=== PATIENT | female | born 1945 ===

== ENCOUNTER 2024-03-18 17:27 | Emergency (ER) | payer MEDICARE, OTHER, SELFPAY ==
[2024-03-18 17:38] VITALS: BP 151/63; PULSE 90; RESP 14; TEMP 36.7; O2SAT 96
--- NOTE | 2024-03-18 19:07 | ED.GENADUL_ITS ---
Discharge Plan Disposition Patient Disposition: Home Condition: Stable Discharge Details Clinical Impression: HSV (herpes simplex virus) infection, Dehydration Primary Care Provider: Unknown,Unknown ED Provider: Marisa Calvin Discharge Instructions Instructions: Cold sores (oral herpes) Additional Instructions: Please establish care with a primary care provider if you do not want to see your current PCP. It is very important that you stay well-hydrated. Continue to take Tylenol 6 or 50 mg every 6 hours and/or ibuprofen 600 mg every 8 hours for pain control as needed. You have may also use the Magic mouthwash provided, 5 mL every 6 hours as needed for discomfort. Cool drinks and soft foods may be most comfortable. Return to emergency care if you are unable to tolerate any drinks or food by mouth, difficulty breathing, decreased urine output, episodes of passing out, or if you are very worried and need to be rechecked again immediately HPI General Date/Time Provider Initiated Documentation: 03/18/24 17:30 . HPI Narrative: Shea is a 78-year-old female with history of HTN, provoked PE due to breast cancer, CHF who presents to the emergency department for evaluation of oral sores and concern for dehydration. She was admitted to the hospital in [place] 1 week ago for COVID-pneumonia (sx started 2 weeks ago), was found to have MARCELA at that time (prerenal is azotemia). She was treated with dexamethasone, remdesivir, ceftriaxone, and azithromycin x 7 days, discharged home, at which point she flew here to [place]. She lives in [place]. She reports that her cough has been unchanged since hospitalization, she was sent home with albuterol inhaler but has not used it since last night. She reports she has a mild frontal headache and pain in her mouth and throat from oral sores, which she attributes to HSV which usually gets activated by viral illness. Denies fever/chills, vision change, chest pain, shortness of breath, change in cough, nausea/vomiting, abdominal pain, change in bowel or bladder function. She has only urinated small amounts of dark urine today. She estimates she is only had 1 cup of water to drink in this timeframe since yesterday. She has not taken any Tylenol or ibuprofen today. Physical exam remarkable for perioral sores consistent with HSV, as well as shallow ulcerations in the buccal mucosa/inner lip. Voice is slightly hoarse, mucous membranes are tacky with a white film on tongue. Uvula midline, full painless range of motion to neck, no cervical or submandibular lymphadenopathy. Easy work of breathing, faint wheezes noted in upper lobes bilaterally. Occasional congested cough. Normal heart sounds, heart rate in the 100s, slight tachycardia. Abdomen is soft, nondistended, nontender to palpation. Moving all extremities equally. History and presentation consistent with dehydration due to HSV infection, concern for possible electrolyte imbalance. As patient's symptoms have been unchanged since discharge from the hospital, no significant concern for persistent/treatment resistant pneumonia at this time. I independently interpreted the following tests: CBC reassuring, leukocytosis with white cell count 13.66 noted, consistent with recent steroid use. BMP reassuring. While in the emergency department Shea received Magic mouthwash and Toradol with good improvement in the pain. IV fluids given for rehydration. She was able to tolerate p.o. after receiving medications for discomfort. No indications for hospitalization, as patient can be managed outpatient as long as she stays hydrated. Stressed the importance of drinking plenty of fluids with patient. Reviewed discharge instructions with patient, including pain managemen t and red flags indicate need for return to emergency care. She is currently thinking about leaving her primary care provider in [place], recommend establishing care with a new one and had a telehealth visit as needed. Related Data Allergies Allergy/AdvReac Type Severity Reaction Status Date / Time No Known Allergies Allergy Verified 03/18/24 17:41 General Stated Complaint: RespSymp ANGELITO: 3 Review of Systems Narrative: see HPI Exam Const General: cooperative, no acute distress and disheveled Nutritional Appearance: obese HENMT Head: normal to inspection General nose exam: external nose normal Face and sinus: normal facial exam and dry mucous membranes Mouth: no drooling, lip abnormal (herpetic lesions to upper and lower lips) and oral mucosa abnormal (swallow round ulcerations to inner cheeks and inner lips) Throat: tonsils normal and uvula midline Neck Neck: normal visual inspection, full ROM and no lymphadenopathy Lymphatic: no lymphadenopathy noted Resp Effort & Inspection: normal respiratory effort and able to speak in complete sentences Auscultation: wheezes (faint end exp wheezes bilaterally) Cardio Rate: regular rate Rhythm: regular rhythm GI Inspection: normal to inspection Palpation: soft and nontender Neuro General: gait normal, tone normal and moves all extremities Course Vital Signs Vital signs: Vital Signs Temperature 36.7 C 03/18/24 17:38 Pulse 90 03/18/24 17:38 Respiratory Rate 14 03/18/24 17:38 Blood Pressure 151/63 H 03/18/24 17:38 Pulse Oximetry 96 03/18/24 17:38 Temperature 36.7 C 03/18/24 17:38 Temperature Source Skin 03/18/24 17:38 Pulse 90 03/18/24 17:38 Respiratory Rate 14 03/18/24 17:38 Blood Pressure 151/63 H 03/18/24 17:38 Blood Pressure Position Sitting 03/18/24 17:38 Pulse Oximetry 96 03/18/24 17:38 Oxygen Delivery Method Room Air 03/18/24 17:38 Oxygen Flow Rate 0 03/18/24 17:38 Pain Level 4 03/18/24 17:38 Medical Decision Making Quality:SDOH Health Related Social Needs: No Data to Display PFSH All Active Problems (Updated 03/18/24 @ 21:45 by Marisa Resendez) Dehydration (Acute) HSV (herpes simplex virus) infection (Acute) Social History Smoking/Tobacco Use Status: Never Smoking risk assessment performed?: Yes Substance use type: does not use Housing: house Do you feel safe at home: Yes Do you feel safe in your relationship?: Yes
[2024-03-18 19:49] LABS: Abs Immature Grans 0.64 10^3/uL (0.0-0.06); HCT 37.7 % (36.0-46.0); HGB 12.5 g/dL (11.2-15.7); MCH 28.3 pg (27.0-33.0); MCHC 33.2 % (32.0-36.0); MCV 85 fL (80-95); MPV 10.7 fL (8.0-11.0); Platelet Count 259 10^3/uL (130-400); RBC 4.42 10^6/uL (3.93-5.22); RDW 14.5 % (11.7-14.6); RDW-SD 44.3 fL; WBC 13.66 10^3/uL (4.4-10.8)
[2024-03-18] MEDS: Ketorolac 15 MG/ML VIAL IVP (19:49)
[2024-03-18 19:56] LABS: Anion Gap 5.9 mmol/L (3-11); BUN 24 mg/dL (7-18); CO2 33.1 mmol/L (21.0-32.0); Calcium 9.4 mg/dL (8.5-10.1); Chloride 98 mmol/L (98-107); Estimated GFR 58.02 (mL/min/1.73m2); Glucose 192 mg/dL (74-106); Potassium 4.1 mmol/L (3.5-5.1); Sodium 137 mmol/L (136-145)
[2024-03-18] MEDS: Magic Mouthwash 119 ML BTL MM (19:57)
[2024-03-18] MEDS: Normal Saline 250 ML 500 ML IV (19:58)
[2024-03-18 20:17] LABS: Absolute Monocyte Count 0.41 10^3/uL (0.1-0.8); Absolute Neutrophil Count 11.47 10^3/uL (1.2-6.7); Bands % 1 %
[2024-03-18 20:18] LABS: Diff Comment Manual Differential; Metamyelocytes % 2; RBC Morphology Normal
[2024-03-18 21:18] VITALS: BP 151/63; PULSE 90; RESP 14; TEMP 36.7; O2SAT 96
[2024-03-18 21:59] VITALS: BP 151/63; PULSE 80; RESP 14; TEMP 36.7; O2SAT 96
[2024-03-18 22:00] VITALS: BP 151/63; PULSE 80; RESP 14; TEMP 36.7; O2SAT 96
== END 2024-03-18 22:00 | disposition home or self-care (01) ==
PROVIDERS: Emergency Provider Nurse Practitioner Family
DX: B00.1 Herpesviral vesicular dermatitis (principal); I11.0 Hypertensive heart disease with heart failure; I50.9 Heart failure, unspecified
CPT/HCPCS: 80048; 96361; 96374; 99284; 85025; 99283; J1885